=== PATIENT | male | born 1980 | race Caucasian/White ===

== ENCOUNTER 2016-10-16 00:20 | Emergency (ER) | payer SELFPAY ==
[~2016-10-16] VITALS: Ht 190.5 cm; Wt 90.3 kg
[2016-10-16] MEDS ORDERED: AUGMENTIN875 MG PO (02:46)
[2016-10-16 03:17] VITALS: BP 134/80
== END 2016-10-16 03:18 | disposition home or self-care (01) ==
LOC: EXP 00:20 → EME 00:20 → EXP 03:18
DX: S81.852A Open bite, left lower leg, initial encounter (principal); W54.0XXA Bitten by dog, initial encounter
CPT/HCPCS: 99281; 99284

== ENCOUNTER 2018-04-10 18:50 | Emergency (ER) | payer SELFPAY ==
[~2018-04-10] VITALS: Ht 190.5 cm; Wt 86.2 kg
[~2018-04-10 18:50] MED LIST: AUGMENTIN875 MG PO
[2018-04-10] MEDS ORDERED: KEFLEX500 MG PO (21:55)
[2018-04-10 22:59] VITALS: BP 146/84
== END 2018-04-10 23:00 | disposition home or self-care (01) ==
LOC: EME 18:50
DX: L03.114 Cellulitis of left upper limb (principal); F17.200 Nicotine dependence, unspecified, uncomplicated
CPT/HCPCS: 99281; 99283